=== PATIENT | female | born 1990 | race Two or more races ===

== ENCOUNTER 2017-01-03 12:47 | Emergency (ER) | payer MEDICAID ==
[~2017-01-03] VITALS: Ht 170.2 cm; Wt 48.1 kg
[2017-01-03] MEDS ORDERED: Lidocaine HCl 2% Jelly 5ml Tube TOPIC ONE (13:30)
[2017-01-03] MEDS ORDERED: Norco 5mg/325mg tab ORAL ONE (13:30)
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
[2017-01-03] MEDS ORDERED: CYCLOBENZAPRINE10 MG ORAL (14:19)
[2017-01-03] MEDS ORDERED: IBUPROFEN600 MG ORAL (14:19)
[2017-01-03 14:20] VITALS: BP 119/81
--- NOTE | 2017-01-03 14:24 | Diagnostic Imaging Report ---
Indication: Pain 3 views of the right knee were obtained. Findings: No acute fracture, malalignment, or joint effusion are identified. Joint space is relatively well-maintained. Impression: Negative for acute findings.
== END 2017-01-03 14:20 | disposition home or self-care (01) ==
LOC: EMR 14:10
DX: S86.811A Strain of other muscle(s) and tendon(s) at lower leg level, right leg, initial encounter (principal); S50.811A Abrasion of right forearm, initial encounter; V43.62XA Car passenger injured in collision with other type car in traffic accident, initial encounter; Y92.410 Unspecified street and highway as the place of occurrence of the external cause
CPT/HCPCS: 99284

== ENCOUNTER 2017-08-26 22:08 | Emergency (ER) | payer MEDICAID ==
[~2017-08-26] VITALS: Ht 170.2 cm; Wt 47.6 kg
[~2017-08-26 22:08] MED LIST: CYCLOBENZAPRINE10 MG ORAL; IBUPROFEN600 MG ORAL
[2017-08-26] MEDS ORDERED: XANAX0.5 MG ORAL (22:15)
[2017-08-26 22:24] VITALS: BP 111/78
--- NOTE | 2017-08-26 22:27 | Emergency Room Report ---
History of Present Illness General Chief Complaint: Abdominal Pain Source: Patient Present Illness HPI Is a 26-year-old female with no past medical history. She presents with chief complaint abdominal pain with nausea vomiting and diarrhea. Onset for 5 days now. Fever initially. Pain is crampy and sharp in nature. Worse with eating. Diarrhea is just loose stool. Initially was watery. Vomiting is decreasing but still very nauseous with eating. No local deficit. No urinary complaint. Unlikely to be since she is on her menstrual. Allergies: Coded Allergies: No Known Allergies (Unverified , 01/03/17) Patient History Past Medical History: none, see triage record, old chart reviewed Past Surgical History: none Pertinent Family History: none Social History: Denies: smoking Last Menstrual Period: July Now: No Immunizations: other Reviewed Nursing Documentation: PMH: Agreed; PSxH: Agreed Nursing Documentation-PM Past Medical History: No Stated History History Of Psychiatric Problem: Yes - ANXIETY Review of Systems Eye: Denies: eye pain, blurred vision ENT: Denies: ear pain, nose congestion, throat swelling Respiratory: Denies: cough, shortness of breath Cardiovascular: Denies: chest pain, palpitations Gastrointestinal: Reports: abdominal pain, diarrhea, nausea, vomiting Musculoskeletal: Denies: back pain, joint pain Skin: Denies: rash Neurological: Denies: headache, numbness Endocrine: Denies: increased thirst, increased urine Hematologic/Lymphatic: Denies: easy bruising All Other Systems: negative except mentioned in HPI Physical Exam Vital Signs Date Time Temp Pulse Resp B/P (MAP) Pulse Ox O2 Delivery O2 Flow Rate FiO2 08/26/17 22:10 98.2 82 16 111/78 97 Room Air 98.2 vitals normal Sp02 EP Interpretation: reviewed, normal General Appearance: well appearing, no apparent distress, alert Head: normocephalic, atraumatic Eyes: bilateral eye PERRL, bilateral eye EOMI ENT: hearing grossly normal, normal pharynx Neck: full range of motion, supple, no meningismus Respiratory: chest non-tender, lungs clear, normal breath sounds Cardiovascular #1: regular rate, rhythm, no murmur Gastrointestinal: normal bowel sounds, no mass, no organomegaly, no bruit, non- distended, tenderness - Mild, diffuse. Musculoskeletal: back normal, gait/station normal, normal range of motion Neurologic: alert, oriented x3 Psychiatric: mood/affect normal Skin: warm/dry Medical Decision Making Diagnostic Impression: Primary Impression: Infectious diarrhea in adult patient ER Course Patient with prolonged diarrhea and abdominal pain. CT scan show mild inflammation of the colon. We'll go ahead and put on antibiotics. No evidence of acute abdomen or obstruction. No evidence of UTI or ectopic. We'll discharge home. Lab Results Impression labs with elevated LFT CT/MRI/US Diagnostic Results CT/MRI/US Diagnostic Results : Imaging Test Ordered: CT abdomen and pelvis Impression Read by radiologist. Mild wall thickening of the rectosigmoid colon. Last Vital Signs Date Time Temp Pulse Resp B/P (MAP) Pulse Ox O2 Delivery O2 Flow Rate FiO2 08/26/17 22:10 98.2 82 16 111/78 97 Room Air 98.2 Status: improved Disposition: HOME, SELF-CARE Condition: Stable Scripts Ciprofloxacin Hcl* (CIPROFLOXACIN HCL*) 500 Mg Tablet 500 MG ORAL Q12H, #14 TAB 0 Refills Prov: ANGELICA COSME M.D. 08/27/17 Additional Instructions: Follow-up your doctor in 7 days. Increase fluid. Return if symptom worsen. ANGELICA COSME M.D. Aug 26, 2017 22:27
[2017-08-26] MEDS ORDERED: Isovue-300 100ml vial INJ PRN (22:30)
[2017-08-26] MEDS ORDERED: Ketorolac 30mg Inj IV ONE (22:30)
[2017-08-26 22:53] LABS: APPEARANCE,URINE SLIGHTLY CLOUDY; BILIRUBIN, URINE NEGATIVE (NEGATIVE); COLOR,URINE RED; GLUCOSE, URINE (UA) NEGATIVE (NEGATIVE); KETONES,URINE NEGATIVE (NEGATIVE); LEUKOCYTE ESTERASE ,URINE 1+ (NEGATIVE); NITRITE,URINE NEGATIVE (NEGATIVE); PH,URINE 7 (4.5-8.0); PROTEIN,URINE 3+ (NEGATIVE); UROBILINOGEN,URINE NORMAL MG/DL (0.0-1.0)
[2017-08-26 22:55] LABS: EOSINOPHILS % (AUTO) 1.3 % (0.0-3.0); HEMATOCRIT 37.6 % (37.0-47.0); HEMOGLOBIN 12.9 G/DL (12.0-16.0); LYMPHOCYTES % (AUTO) 40.4 % (20.0-45.0); MEAN CORPUSCULAR VOLUME 91 FL (80-99); MONOCYTES % (AUTO) 7.7 % (1.0-10.0); NEUTROPHILS % (AUTO) 49.6 % (45.0-75.0); PLATELET COUNT 246 K/UL (150-450); RED BLOOD COUNT 4.14 M/UL (4.20-5.40); RED CELL DISTRIBUTION WIDTH 10.6 % (11.6-14.8); WHITE BLOOD COUNT 6.5 K/UL (4.8-10.8)
[2017-08-26 23:05] LABS: ANION GAP 8 mmol/L (5-15); BLOOD UREA NITROGEN 8 mg/dL (7-18); CALCIUM 8.5 MG/DL (8.5-10.1); CARBON DIOXIDE 27 MMOL/L (21-32); CHLORIDE 107 MMOL/L (98-107); POTASSIUM 3.2 MMOL/L (3.5-5.1); SODIUM 142 MMOL/L (136-145)
[2017-08-26 23:10] LABS: ALANINE AMINOTRANSFERASE 154 U/L (12-78); ALBUMIN 3.7 G/DL (3.4-5.0); ALKALINE PHOSPHATASE 44 U/L (46-116); ASPARTATE AMINO TRANSFERASE 126 U/L (15-37); BILIRUBIN,TOTAL 0.2 MG/DL (0.2-1.0)
--- NOTE | 2017-08-27 00:43 | Diagnostic Imaging Report ---
EXAM: CT Abdomen and Pelvis With Intravenous Contrast CLINICAL HISTORY: Abdominal PAIN TECHNIQUE: Axial computed tomography images of the abdomen and pelvis with intravenous contrast. CTDI is 10 mGy and DLP is 500 mGy-cm. One or more of the following dose reduction techniques were used: automated exposure control, adjustment of the mA and/or kV according to patient size, use of iterative reconstruction technique. COMPARISON: None. FINDINGS: Lung bases: Unremarkable. No mass. No consolidation. ABDOMEN: Liver: Unremarkable. No mass. Gallbladder and bile ducts: Unremarkable. No calcified stones. No ductal dilation. Pancreas: Unremarkable. No mass. No ductal dilation. Spleen: Unremarkable. No splenomegaly. Adrenals: Unremarkable. No mass. Kidneys and ureters: Unremarkable. No solid mass. No hydronephrosis. Stomach and bowel: Wall thickening of the rectosigmoid. Fecal and gaseous distention. The more proximal colon. Distended stomach with retained gastric contents. PELVIS: Appendix: The appendix is not definitively seen. Suboptimal evaluation for secondary signs. Bladder: Unremarkable. No mass. Reproductive: Likely physiological follicular changes in the ovaries. ABDOMEN and PELVIS: Intraperitoneal space: Small amount of free fluid in pelvis. No free air or fluid collections. Bones/joints: No acute fracture. No dislocation. Soft tissues: Unremarkable. Vasculature: Unremarkable. No abdominal aortic aneurysm. Lymph nodes: Unremarkable. No enlarged lymph nodes. IMPRESSION: The appendix is not definitively seen. Suboptimal evaluation for secondary signs. Correlate with clinical findings and surgical history. Wall thickening of rectosigmoid may be due to incomplete distention or proctocolitis. Small amount of free fluid in pelvis. No free air or fluid collections. Fecal and gaseous distention of more proximal colon. Likely physiological follicular changes in the ovaries.
[2017-08-27] MEDS ORDERED: CIPROFLOXACIN500 M2 ORAL (01:03)
[2017-08-27 01:10] VITALS: BP 114/74
== END 2017-08-27 01:05 | disposition home or self-care (01) ==
LOC: EMR 22:40
DX: A09 Infectious gastroenteritis and colitis, unspecified (principal); F41.9 Anxiety disorder, unspecified
CPT/HCPCS: 36415; 74177; 80053; 81003; 81025; 83690; 85025; 96360; 96374; 96375; 99284; J1885; J2405; Q9967

== ENCOUNTER 2018-03-23 12:00 | Emergency (ER) | payer MEDICAID ==
[~2018-03-23] VITALS: Ht 167.6 cm; Wt 48.5 kg
[~2018-03-23 12:00] MED LIST changes: +CIPROFLOXACIN500 M2 ORAL; +XANAX0.5 MG ORAL
[2018-03-23] MEDS ORDERED: NKM (12:10)
[2018-03-23 12:11] VITALS: BP 96/63
--- NOTE | 2018-03-23 12:30 | Emergency Room Report ---
History of Present Illness General Chief Complaint: Lower Back Pain or Injury Source: Patient Present Illness HPI 27-year-old female presents to the emergency department complaining of acute onset of 10 out of 10 in severity sharp left-sided low back pain acute onset after she was bending over to pick something up. Patient denies previous injury to her back and denies history of back pain in the past. Patient denies trauma or fall. She denies hematuria. Patient reports pain is positional with certain movements only.Denies numbness tingling or loss of sensation or gross motor movements of the extremities, incontinence of bowel or bladder. Denies CP , Palpitations, LOC, AMS, dizziness, Changes in Vision, weakness or a sudden severe headache. Pt. also c/o persistent mucus from recent URI and is requesting medication for that. Allergies: Coded Allergies: No Known Allergies (Unverified , 01/03/17) Patient History Past Medical History: see triage record Past Surgical History: none Pertinent Family History: none Last Menstrual Period: 2 weeks ago Now: No Reviewed Nursing Documentation: PMH: Agreed; PSxH: Agreed Nursing Documentation-PMH Past Medical History: No Stated History Review of Systems All Other Systems: negative except mentioned in HPI Physical Exam Vital Signs Date Time Temp Pulse Resp B/P (MAP) Pulse Ox O2 Delivery O2 Flow Rate FiO2 03/23/18 12:06 98.4 78 20 96/63 100 Room Air Sp02 EP Interpretation: reviewed, normal General Appearance: alert, GCS 15, non-toxic, mild distress Head: normocephalic, atraumatic Eyes: bilateral eye normal inspection, bilateral eye PERRL ENT: hearing grossly normal, normal pharynx, normal voice, uvula midline, moist mucus membranes, nasal congestion Neck: full range of motion Respiratory: lungs clear, normal breath sounds, speaking full sentences Cardiovascular #1: regular rate, rhythm Gastrointestinal: non tender, soft Rectal: deferred Genitourinary: normal inspection, no CVA tenderness Musculoskeletal: back normal, gait/station normal, normal range of motion, tender - Left paraspinal ttp to lumbar area, no midline ttp, no spinous process ttp or step-off, FROM with some pain when bending forward. Neurologic: alert, oriented x3, responsive, motor strength/tone normal, sensory intact, speech normal, grossly normal Psychiatric: judgement/insight normal Skin: normal color, no rash, warm/dry, well hydrated Lymphatic: no adenopathy Medical Decision Making [place] Attestation Dr. Courtney is my supervising Physician whom patient management has been discussed with. Diagnostic Impression: Primary Impression: Acute lumbosacral myofascial strain Qualified Codes: S39.012A - Strain of muscle, fascia and tendon of lower back , initial encounter Additional Impression: Lumbosacral pain ER Course 27-year-old female presents to the emergency department complaining of acute onset of 10 out of 10 in severity sharp left-sided low back pain acute onset after she was bending over to pick something up. Patient denies previous injury to her back and denies history of back pain in the past. Patient denies trauma or fall. She denies hematuria. Patient reports pain is positional with certain movements only.Denies numbness tingling or loss of sensation or gross motor movements of the extremities, incontinence of bowel or bladder. Denies CP , Palpitations, LOC, AMS, dizziness, Changes in Vision, weakness or a sudden severe headache. Pt. also c/o persistent mucus from recent URI and is requesting medication for that. Ddx considered but are not limited to Fracture, dislocation, contusion, epidural abscess, Sprain/Strain/Spasm Vital signs: are WNL, pt. is afebrile H&PE are most consistent with lumbosacral strain ORDERS: X-ray not required at this time, no spinous process tenderness ED INTERVENTIONS: Motrin PO -Soma PO -Lidoderm TP DISCHARGE: At this time pt. is stable for d/c to home. Will provide printed patient care instructions, and any necessary prescriptions. Care plan and follow up instructions have been discussed with the patient prior to discharge. Last Vital Signs Date Time Temp Pulse Resp B/P (MAP) Pulse Ox O2 Delivery O2 Flow Rate FiO2 03/23/18 12:11 98.4 88 19 96/63 100 Room Air Disposition: HOME, SELF-CARE Condition: Stable Departure Forms: Return to Work Return to Work Date: Mar 27, 2018 Work Restrictions: None Other Restrictions: May return Sooner if Symptoms have resolved. Return to Full Activity: Mar 27, 2018 Patient Instructions: Lumbosacral Strain Additional Instructions: Take medications as directed. Follow up with a Primary Care Provider in 3-5 days, even if your symptoms have resolved. --Please review list of primary care clinics, if you do not already have a primary care provider Return sooner to ED if new symptoms occur, or current symptoms become worse. Do not drink alcohol, drive, or operate heavy machinery while taking Robaxin ( Muscle Relaxers) as this may cause drowsiness. - Please note that this Emergency Department Report was dictated using [employer] distribution consultant technology software, occasionally this can lead to erroneous entry secondary to interpretation by the dictation equipment. Mariah Marquez Mar 23, 2018 12:30
[2018-03-23] MEDS ORDERED: IBUPROFEN600 MG ORAL (12:31)
[2018-03-23] MEDS ORDERED: GUAIFENESIN1200 MG PO (12:31)
[2018-03-23] MEDS ORDERED: ROBAXIN-750750 MG PO (12:31)
== END 2018-03-23 12:43 | disposition home or self-care (01) ==
LOC: EMR 12:38
DX: S39.012A Strain of muscle, fascia and tendon of lower back, initial encounter (principal); X50.1XXA Overexertion from prolonged static or awkward postures, initial encounter; Y92.9 Unspecified place or not applicable
CPT/HCPCS: 99282

== ENCOUNTER 2018-09-16 07:51 | Emergency (ER) | payer MEDICAID ==
[~2018-09-16] VITALS: Ht 167.6 cm; Wt 48.5 kg
[~2018-09-16 07:51] MED LIST changes: +GUAIFENESIN1200 MG PO; +NKM; +ROBAXIN-750750 MG PO
--- NOTE | 2018-09-16 08:05 | NUR ---
ED Nurse Note: Patient walked into ED c/o burning sensation while urinating since 09/14/18. Patient is c/o pain 10/10 irritation on her vaginal area.
[2018-09-16 08:07] VITALS: BP 112/71
--- NOTE | 2018-09-16 08:07 | NUR ---
ED Nurse Note: urine sent to lab
[2018-09-16] MEDS ORDERED: Acetaminophen 500mg (ES) tab ORAL ONE (08:15)
[2018-09-16 08:18] LABS: APPEARANCE,URINE CLEAR; BILIRUBIN, URINE NEGATIVE (NEGATIVE); COLOR,URINE PALE YELLOW; GLUCOSE, URINE (UA) NEGATIVE (NEGATIVE); KETONES,URINE NEGATIVE (NEGATIVE); LEUKOCYTE ESTERASE ,URINE 2+ (NEGATIVE); NITRITE,URINE NEGATIVE (NEGATIVE); PH,URINE 5 (4.5-8.0); PROTEIN,URINE NEGATIVE (NEGATIVE); UROBILINOGEN,URINE NORMAL MG/DL (0.0-1.0)
[2018-09-16] MEDS ORDERED: NITROFURANTOIN100 M2 ORAL (08:45)
[2018-09-16] MEDS ORDERED: PHENAZOPYRIDIN100 MG ORAL (08:45)
[2018-09-16] MEDS ORDERED: TYLENOL EXTRA500 MG ORAL (08:45)
[2018-09-16 08:53] VITALS: BP 112/71
--- NOTE | 2018-09-16 08:54 | NUR ---
ER DISCHARGE NOTE: Patient is cleared to be discharged per ERMD DR. RDZ, pt is aox4, on room air, with stable vital signs. pt was given dc and prescription instructions, pt was able to verbalize understanding, pt id band removed without complications. pt is able to ambulate with steady gait. pt took all belongings.
--- NOTE | 2018-09-16 10:53 | Emergency Room Report ---
History of Present Illness General Chief Complaint: Female Urogenital Problems Source: Patient Present Illness HPI 27-year-old female presents ED for evaluation. Complaining of irritation and dysuria x1 day. States she has had prior history of UTI. Pain is dull, 5 out of 10, nonradiating. Denies nausea or vomiting. Denies flank pain. Denies fevers or chills. Denies vaginal bleeding or discharge. No other aggravating relieving factors. Denies any other associated symptoms Allergies: Coded Allergies: No Known Allergies (Unverified , 01/03/17) Patient History Past Medical History: none Past Surgical History: none Pertinent Family History: none Social History: Denies: smoking, alcohol use, drug use Last Menstrual Period: 08/27/18 Now: No Immunizations: UTD Reviewed Nursing Documentation: PMH: Agreed; PSxH: Agreed Nursing Documentation-PMH Past Medical History: No Stated History Review of Systems All Other Systems: negative except mentioned in HPI Physical Exam Vital Signs Date Time Temp Pulse Resp B/P (MAP) Pulse Ox O2 Delivery O2 Flow Rate FiO2 09/16/18 07:58 98.2 85 19 110/73 (85) 100 Room Air Sp02 EP Interpretation: reviewed, normal General Appearance: no apparent distress, alert, GCS 15, non-toxic Head: normocephalic, atraumatic Eyes: bilateral eye normal inspection, bilateral eye PERRL ENT: hearing grossly normal, normal pharynx, no angioedema, normal voice Neck: full range of motion, supple/symm/no masses Respiratory: chest non-tender, lungs clear, normal breath sounds, speaking full sentences Cardiovascular #1: regular rate, rhythm, no edema Cardiovascular #2: 2+ carotid (R), 2+ carotid (L), 2+ radial (R), 2+ radial (L) , 2+ dorsalis pedis (R), 2+ dorsalis pedis (L) Gastrointestinal: normal bowel sounds, non tender, soft, non-distended, no guarding, no rebound Rectal: deferred Genitourinary: normal inspection, no CVA tenderness Musculoskeletal: back normal, gait/station normal, normal range of motion, non- tender Neurologic: alert, oriented x3, responsive, motor strength/tone normal, sensory intact, speech normal Psychiatric: judgement/insight normal, memory normal, mood/affect normal, no suicidal/homicidal ideation Reflexes: 3+ bicep (R), 3+ bicep (L), 3+ tricep (R), 3+ tricep (L), 3+ knee (R) , 3+ knee (L) Skin: normal color, no rash, warm/dry, well hydrated Lymphatic: no adenopathy Medical Decision Making Diagnostic Impression: Primary Impression: UTI (urinary tract infection) Qualified Codes: N39.0 - Urinary tract infection, site not specified ER Course Hospital Course 27-year-old female presents to ED complaining of dysuria with suprapubic pain. Differential diagnoses include: UTI, cystitis, pyelonephritis Clinical course Patient placed on stretcher. After initial history and physical I ordered UA, urine , tylenol. UA with some bacteria. Discussed findings with patient. Clinically concerning for UTI. No vaginal bleeding or discharge. No concern for STI. Will discharge with antibiotics and Pyridium. States she has a PMD. Diagnosis - UTI Stable and discharged home with prescriptions for Rx macrobid, pyridium, tylenol. Instructed to followup with PMD. Return to ED if symptoms recur or worsen Labs Test 09/16/18 08:01 Urine Color Pale yellow Urine Appearance Clear Urine pH 5 (4.5-8.0) Urine Specific Shepherd 1.025 (1.005-1.035) Urine Protein Negative (NEGATIVE) Urine Glucose (UA) Negative (NEGATIVE) Urine Ketones Negative (NEGATIVE) Urine Blood 1+ (NEGATIVE) Urine Nitrite Negative (NEGATIVE) Urine Bilirubin Negative (NEGATIVE) Urine Urobilinogen Normal MG/DL (0.0-1.0) Urine Leukocyte Esterase 2+ (NEGATIVE) Urine RBC 0-2 /HPF (0 - 2) Urine WBC 5-10 /HPF (0 - 2) Urine Squamous Epithelial Cells Few /LPF (NONE/OCC) Urine Bacteria Few /HPF (NONE) Urine HCG, Qualitative Negative (NEGATIVE) Last Vital Signs Date Time Temp Pulse Resp B/P (MAP) Pulse Ox O2 Delivery O2 Flow Rate FiO2 09/16/18 08:53 98.2 82 16 112/71 99 Room Air Status: improved Disposition: HOME, SELF-CARE Condition: Stable Scripts Acetaminophen* (TYLENOL EXTRA STRENGTH*) 500 Mg Tablet 500 MG ORAL Q8H PRN for Prn Headache/Temp > 101, #30 TAB 0 Refills Prov: Surendra Gruber MD 09/16/18 Phenazopyridine Hcl* (PYRIDIUM*) 100 Mg Tablet 100 MG ORAL THREE TIMES A DAY for 3 Days, TAB Prov: Surendra Gruber MD 09/16/18 Nitrofurantoin Monohyd/M-Cryst* (MACROBID 100 MG*) 100 Mg Capsule 100 MG ORAL EVERY 12 HOURS for 7 Days, CAP Prov: Surendra Gruber MD 09/16/18 Referrals: NON PHYSICIAN (PCP) [facility] Patient Instructions: Urinary Tract Infection Surendra Gruber MD Sep 16, 2018 10:53
== END 2018-09-16 08:53 | disposition home or self-care (01) ==
LOC: EMR 08:12
DX: N39.0 Urinary tract infection, site not specified (principal)
CPT/HCPCS: 81003; 81025; 99283